=== PATIENT | male | born 1980 | race African-American/Black ===

== ENCOUNTER 2019-09-16 08:05 | Emergency (ER) | payer OTHER ==
[~2019-09-16] VITALS: Ht 188 cm; Wt 81.6 kg
[2019-09-16 08:06] VITALS: Ht 188 cm; Wt 81.6 kg
[2019-09-16 09:06] LABS: BASOPHIL % 0.3 % (0-2); PLATELET COUNT 299 x10^3mcL (130-400); RED CELL DISTRIBUTION WIDTH 13.8 % (11.5-14.5)
[2019-09-16 09:09] LABS: CALCIUM 9.6 mg/dL (8.5-10.1); CHLORIDE SERUM 103 mmol/L (98-107); CREATININE SERUM 1.2 mg/dL (0.7-1.3); GFR1 > 60 mL/min; GLUCOSE SERUM 110 mg/dL (74-106); POTASSIUM SERUM 3.2 mmol/L (3.5-5.1); SODIUM SERUM 140 mmol/L (136-145)
[2019-09-16 09:14] LABS: ALBUMIN 4.1 g/dL (3.4-5.0); ALKALINE PHOSPHATASE 59 U/L (46-116); ALT/SGPT 25 U/L (16-63); AST/SGOT 18 U/L (15-37); BILIRUBIN TOTAL 0.9 mg/dL (0.20-1.00); TOTAL PROTEIN, SERUM 8.2 g/dL (6.4-8.2)
[2019-09-16 09:59] LABS: AMPHETAMINE QUAL UR NONE DETECTED (See below)
[2019-09-16 11:43] VITALS: BP 114/80
== END 2019-09-16 11:43 | disposition home or self-care (01) ==
LOC: ED 08:05
PROVIDERS: Emergency Medicine
DX: F41.9 Anxiety disorder, unspecified (principal)
CPT/HCPCS: 83880; J2060